=== PATIENT | male | born 1970 | race Caucasian/White ===

== ENCOUNTER 2020-07-19 15:58 | Emergency (ER) | payer BC ==
[2020-07-19] MEDS ORDERED: Sodium Chloride 0.9% 10 ML Syringe FLUSH PRN (16:24)
[2020-07-19] MEDS ORDERED: Dexamethasone 4 MG/ML SDV IVPUSH ONE (16:25)
[2020-07-19] MEDS ORDERED: Albuterol 6.7 GM Inhaler INH ONE (16:27)
[2020-07-19] MEDS ORDERED: Sodium Chloride 0.9% 1,000 ML IV ONE (16:28)
--- NOTE | 2020-07-19 16:33 | EDM.PDOC ---
ED HPI GENERAL MEDICAL PROBLEM - General Chief Complaint: Respiratory Problem Stated Complaint: COVID + SENT BY HOME CARMELO VELA 02 Time Seen by Provider: 07/19/20 16:10 Source of Information: Reports: Patient History Limitations: Reports: No Limitations - History of Present Illness INITIAL COMMENTS - FREE TEXT/NARRATIVE: The patient presents with COVID 19, cough, fever, generalized weakness and low oxygen saturations. The patient started having signs on the 8th and on the 9th he was tested. The symptoms have not gotten better. He obtained a pulse oximeter for home and his oxygen saturations have been in the upper 80s for the past 3 hours. He has no lung problems such as asthma or COPD. He does not smoke. He has no heart problems such as NM. He has no history of hypertension. He does have hypercholesterolemia. Onset: Gradual Duration: Week(s): Severity: Moderate Improves with: Reports: None Worsens with: Reports: None Associated Symptoms: Reports: Cough, Fever/Chills, Shortness of Breath. Denies: Chest Pain, Headaches, Nausea/Vomiting - Related Data Allergies Allergy/AdvReac Type Severity Reaction Status Date / Time oxycodone HCl [From Percodan] Allergy Swollen Verified 07/19/20 16:08 Tongue oxycodone terephthalate Allergy Swollen Verified 07/19/20 16:08 [From Percodan] Tongue Past Medical History Cardiovascular History: Reports: High Cholesterol - Infectious Disease History Infectious Disease History: Reports: Novel Coronavirus Social & Family History - Tobacco Use Tobacco Use Status *Q: Never Tobacco User Second Hand Smoke Exposure: No - Caffeine Use Caffeine Use: Reports: Coffee - Recreational Drug Use Recreational Drug Use: No ED ROS GENERAL - Review of Systems Review Of Systems: See Below Constitutional: Reports: Fever, Chills, Malaise, Weakness, Fatigue HEENT: Reports: No Symptoms Respiratory: Reports: Shortness of Breath, Cough Cardiovascular: Reports: No Symptoms Endocrine: Reports: No Symptoms GI/Abdominal: Reports: No Symptoms : Reports: No Symptoms Musculoskeletal: Reports: No Symptoms ED EXAM, GENERAL - Physical Exam Exam: See Below Exam Limited By: No Limitations General Appearance: Alert, No Apparent Distress Ears: Normal External Exam Nose: Normal Inspection Head: Atraumatic, Normocephalic Neck: Normal Inspection Respiratory/Chest: No Respiratory Distress, Decreased Breath Sounds. No: Rhonchi, Wheezing Cardiovascular: Regular Rate, Rhythm, No Edema, No Murmur GI/Abdominal: Soft, Non-Tender, No Organomegaly, No Mass Back Exam: Normal Inspection Extremities: Normal Inspection #1 Interpretation EKG Date: 07/19/20 Time: 16:19 Rhythm: Other (sinus tachycardia) Rate (Beats/Min): 117 [place]: Normal P-Wave: Present QRS: Normal ST-T: Normal QT: Normal Course - Vital Signs Last Recorded V/S: Last Vital Signs Temp 98.8 F 07/19/20 18:05 Pulse 111 H 07/19/20 18:05 Resp 24 H 07/19/20 18:05 BP 122/81 07/19/20 18:05 Pulse Ox 93 L 07/19/20 18:05 - Orders/Labs/Meds Orders: Active Orders 24 hr Category Date Time Status Cardiac Monitoring [RC] . DIRECTED Care 07/19/20 16:24 Active EKG Documentation Completion [RC] STAT Care 07/19/20 16:25 Active Oxygen Therapy [RC] PRN Care 07/19/20 16:24 Active Peripheral IV Care [RC] . DIRECTED Care 07/19/20 16:25 Active RT Post Treatment Assessment [RC] Click to Edit Care 07/19/20 16:27 Active RT Pre-Treatment Assessment [RC] Click to Edit Care 07/19/20 16:27 Active Chest 1V Frontal [CR] Stat Exams 07/19/20 16:25 Taken Sodium Chloride 0.9% [Saline Flush] Med 07/19/20 16:24 Active 10 ml FLUSH ASDIRECTED PRN Peripheral IV Insertion Adult [OM.PC] Stat Oth 07/19/20 16:24 Ordered Medication Orders Sodium Chloride (Saline Flush) 10 ml FLUSH ASDIRECTED PRN PRN Reason: Keep Vein Open Last Admin: 07/19/20 16:52 Dose: 10 ml Documented by: MANNY Labs: Laboratory Tests 07/19/20 07/19/20 07/19/20 Range/Units 16:55 16:55 16:55 WBC 5.79 (4.23-9.07) K/mm3 RBC 5.26 (4.63-6.08) M/mm3 Hgb 15.4 (13.7-17.5) gm/dl Hct 44.5 (40.1-51.0) % MCV 84.6 (79.0-92.2) fl MCH 29.3 (25.7-32.2) pg MCHC 34.6 (32.2-35.5) g/dl RDW Std Deviation 38.2 (35.1-43.9) fL Plt Count 209 D (163-337) K/mm3 MPV 9.9 (9.4-12.3) fl Neut % (Auto) 61.8 (34.0-67.9) % Lymph % (Auto) 21.2 L (21.8-53.1) % Jack % (Auto) 16.4 H (5.3-12.2) % Eos % (Auto) 0 L (0.8-7.0) Baso % (Auto) 0.3 (0.1-1.2) % Neut # (Auto) 3.57 (1.78-5.38) K/mm3 Lymph # (Auto) 1.23 L (1.32-3.57) K/mm3 Jack # (Auto) 0.95 H (0.30-0.82) K/mm3 Eos # (Auto) 0.00 L (0.04-0.54) K/mm3 Baso # (Auto) 0.02 (0.01-0.08) K/mm3 Manual Slide Review Abnormal smear D-Dimer, Quantitative 0.40 (0.19-0.50) mg/L Sodium 134 L D (136-145) mEq/L Potassium 3.3 L (3.5-5.1) mEq/L Chloride 100 (98-107) mEq/L Carbon Dioxide 21 (21-32) mEq/L Anion Gap 16.3 H (5-15) BUN 22 H (7-18) mg/dL Creatinine 1.2 (0.7-1.3) mg/dL Est Cr Clr Drug Dosing 79.94 mL/min Estimated GFR (MDRD) > 60 (>60) mL/min BUN/Creatinine Ratio 18.3 H (14-18) Glucose 114 H (74-106) mg/dL Lactic Acid (0.4-2.0) mmol/L Calcium 8.7 (8.5-10.1) mg/dL Ferritin (26-388) ng/ml Total Bilirubin 0.3 (0.2-1.0) mg/dL AST 34 (15-37) U/L ALT 38 (16-63) U/L Alkaline Phosphatase 56 (46-116) U/L Lactate Dehydrogenase 306 H (85-227) U/L Troponin I 0.084 H* (0.00-0.056) ng/mL C-Reactive Protein 3.3 H* (<1.0) mg/dL Total Protein 7.3 (6.4-8.2) g/dl Albumin 3.3 L (3.4-5.0) g/dl Globulin 4.0 gm/dL Albumin/Globulin Ratio 0.8 L (1-2) 07/19/20 07/19/20 07/19/20 Range/Units 16:55 19:06 19:06 WBC (4.23-9.07) K/mm3 RBC (4.63-6.08) M/mm3 Hgb (13.7-17.5) gm/dl Hct (40.1-51.0) % MCV (79.0-92.2) fl MCH (25.7-32.2) pg MCHC (32.2-35.5) g/dl RDW Std Deviation (35.1-43.9) fL Plt Count (163-337) K/mm3 MPV (9.4-12.3) fl Neut % (Auto) (34.0-67.9) % Lymph % (Auto) (21.8-53.1) % Jack % (Auto) (5.3-12.2) % Eos % (Auto) (0.8-7.0) Baso % (Auto) (0.1-1.2) % Neut # (Auto) (1.78-5.38) K/mm3 Lymph # (Auto) (1.32-3.57) K/mm3 Jack # (Auto) (0.30-0.82) K/mm3 Eos # (Auto) (0.04-0.54) K/mm3 Baso # (Auto) (0.01-0.08) K/mm3 Manual Slide Review D-Dimer, Quantitative (0.19-0.50) mg/L Sodium (136-145) mEq/L Potassium (3.5-5.1) mEq/L Chloride (98-107) mEq/L Carbon Dioxide (21-32) mEq/L Anion Gap (5-15) BUN (7-18) mg/dL Creatinine (0.7-1.3) mg/dL Est Cr Clr Drug Dosing mL/min Estimated GFR (MDRD) (>60) mL/min BUN/Creatinine Ratio (14-18) Glucose (74-106) mg/dL Lactic Acid 1.0 (0.4-2.0) mmol/L Calcium (8.5-10.1) mg/dL Ferritin 456 H (26-388) ng/ml Total Bilirubin (0.2-1.0) mg/dL AST (15-37) U/L ALT (16-63) U/L Alkaline Phosphatase (46-116) U/L Lactate Dehydrogenase (85-227) U/L Troponin I 0.082 H* (0.00-0.056) ng/mL C-Reactive Protein (<1.0) mg/dL Total Protein (6.4-8.2) g/dl Albumin (3.4-5.0) g/dl Globulin gm/dL Albumin/Globulin Ratio (1-2) Meds: Medications Generic Name Dose Route Start Last Admin Trade Name Freq PRN Reason Stop Dose Admin Sodium Chloride 10 ml 07/19/20 16:24 07/19/20 16:52 Saline Flush FLUSH 10 ml ASDIRECTED PRN Administration Keep Vein Open Discontinued Medications Generic Name Dose Route Start Last Admin Trade Name Freq PRN Reason Stop Dose Admin Albuterol 0 gm 07/19/20 16:27 07/19/20 17:36 Proventil Hfa INH 07/19/20 16:28 2 inhalation ONETIME ONE Administration Dexamethasone 6 mg 07/19/20 16:25 07/19/20 16:52 Decadron IVPUSH 07/19/20 16:26 6 mg ONETIME ONE Administration Sodium Chloride 1,000 mls @ 1,000 mls/hr 07/19/20 16:28 07/19/20 16:52 Normal Saline IV 07/19/20 17:27 1,000 mls/hr ONETIME ONE Administration - Re-Assessments/Exams Free Text/Narrative Re-Assessment/Exam: 07/19/20 16:36 I ordered oxygen PRN, IV saline lock, EKG, CXR, dexamethasone 6mg IV, albuterol 2 puffs and labs. 07/19/20 18:00 His CBC looks good. His D-dimer and lactic acid are normal. His CXR shows right lower lung scarring versus subsegmental atelectasis. 07/19/20 18:55 His Na is a little low at 134. His potassium is low at 3.3. His troponin is elevated at 0.084. His CRP is elevated at 3.3. I do not feel he had an NM but the COVID is putting a strain on his heart. I called the [facility] intervention[facility] and talked with Dr aYo and he wanted me to do a repeat troponin and an echo. I have ordered the repeat troponin. 07/19/20 20:12 The repeat troponin is better at 0.082. I have scheduled an echo cardiogram for tomorrow at 9 am and repeat troponin. 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 Take tylenol or motrin as needed for any fever. Come tomorrow morning at 9am for an echocardiogram of your heart and some labs. Please come early to register. Please return if you are worse. Sepsis Event Note (ED) - Evaluation Sepsis Screening Result: No Definite Risk - Focused Exam Vital Signs: Vital Signs Temp Pulse Resp BP Pulse Ox Pulse Ox 07/19/20 18:05 98.8 F 111 H 24 H 122/81 93 L 93 L 07/19/20 16:05 98.9 F 120 H 20 136/88 93 L - My Orders Last 24 Hours: My Active Orders 07/19/20 16:24 Cardiac Monitoring [RC] . DIRECTED Oxygen Therapy [RC] PRN Sodium Chloride 0.9% [Saline Flush] 10 ml FLUSH ASDIRECTED PRN Peripheral IV Insertion Adult [OM.PC] Stat 07/19/20 16:25 EKG Documentation Completion [RC] STAT Peripheral IV Care [RC] . DIRECTED Chest 1V Frontal [CR] Stat 07/19/20 16:27 RT Post Treatment Assessment [RC] Click to Edit RT Pre-Treatment Assessment [RC] Click to Edit - Assessment/Plan Last 24 Hours: My Active Orders 07/19/20 16:24 Cardiac Monitoring [RC] . DIRECTED Oxygen Therapy [RC] PRN Sodium Chloride 0.9% [Saline Flush] 10 ml FLUSH ASDIRECTED PRN Peripheral IV Insertion Adult [OM.PC] Stat 07/19/20 16:25 EKG Documentation Completion [RC] STAT Peripheral IV Care [RC] . DIRECTED Chest 1V Frontal [CR] Stat 07/19/20 16:27 RT Post Treatment Assessment [RC] Click to Edit RT Pre-Treatment Assessment [RC] Click to Edit
--- NOTE | 2020-07-20 08:42 | CR ---
PROCEDURE INFORMATION: Exam: XR Chest, 1 View Exam date and time: 07/19/2020 4:48 PM Age: 49 years old Clinical indication: Chest pain; Patient HX: Cough, SOB TECHNIQUE: Imaging protocol: XR of the chest Views: 1 view. COMPARISON: No relevant prior studies available. FINDINGS: Lungs: There is small linear right basilar opacity. No focal consolidation. Pleural space: Unremarkable. No pleural effusion. No pneumothorax. Heart/Mediastinum: Unremarkable. No cardiomegaly. Bones/joints: Unremarkable. IMPRESSION: Right lower lung scarring versus subsegmental atelectasis. Thank you for allowing us to participate in the care of your patient. Dictated and Authenticated by: Kenny Florence MD 07/19/2020 6:25 PM Central Time ([place] & [place]) [email or web address]
== END 2020-07-19 20:36 | disposition home or self-care (01) ==
LOC: JD.ED 15:58
DX: U07.1 COVID-19 (principal); I42.9 Cardiomyopathy, unspecified; Z88.5 Allergy status to narcotic agent
CPT/HCPCS: 36415; 71045; 80053; 82728; 83605; 83615; 84484; 85025; 85379; 86140; 93005; 94640; 94762; 96374; 99284; A9270; J1100; J7030; 93010

== ENCOUNTER 2020-08-01 15:22 | Emergency (ER) | payer BC ==
--- NOTE | 2020-08-01 17:31 | EDM.PDOC ---
ED HPI GENERAL MEDICAL PROBLEM - General Chief Complaint: Respiratory Problem Stated Complaint: ELEVATED D DIMER,TACHY,DYSPNEA Time Seen by Provider: 08/01/20 17:31 - History of Present Illness INITIAL COMMENTS - FREE TEXT/NARRATIVE: 49-year-old male presents the emergency room after being sent here by the clinic with tachypnea tachycardia and an elevated D-dimer. Patient has had trouble breathing since this last Friday. Is progressively gotten worse his pulse rate is high in the 140s sometimes higher at rest. His respiratory rate is in the low to mid 20s and he just feels short of breath with any sort of activity and at rest it is worsened with activity. Patient has a significant recent past medical history been diagnosed with Covid on 11 July he got over this without too much difficulty had a week of feeling good however this most recent Friday he developed worsening shortness of breath again and his symptoms have gradually worsened to this point. He was seen in the clinic where his D-dimer was elevated they appropriately ordered a CTA however prior to waiting for the results of this he was sent to the emergency room because it was felt that he was not in a condition can go home. The patient is alert is oriented and is very cooperative. Back Pain Score (Numeric/FACES): 2 - Related Data Allergies Allergy/AdvReac Type Severity Reaction Status Date / Time oxycodone HCl [From Percodan] Allergy Swollen Verified 08/01/20 16:17 Tongue oxycodone terephthalate Allergy Swollen Verified 08/01/20 16:17 [From Percodan] Tongue Home Meds: Home Meds Albuterol [Proventil HFA] 2 puff INH ASDIRECTED 08/01/20 [History] Amitriptyline [Elavil] 10 mg PO BEDTIME 08/01/20 [History] Folic Acid 1 mg PO DAILY 08/01/20 [History] Rosuvastatin [Crestor] 10 mg PO DAILY 08/01/20 [History] sulfaSALAzine 500 mg PO QID 08/01/20 [History] Past Medical History Cardiovascular History: Reports: High Cholesterol Respiratory History: Reports: PE - Infectious Disease History Infectious Disease History: Reports: Novel Coronavirus Social & Family History - Tobacco Use Tobacco Use Status *Q: Never Tobacco User - Caffeine Use Caffeine Use: Reports: Coffee - Recreational Drug Use Recreational Drug Use: No ED ROS GENERAL - Review of Systems Review Of Systems: See Below Constitutional: Reports: Weakness, Fatigue. Denies: No Symptoms, Fever, Chills, Night Sweats, Diaphoresis HEENT: Reports: No Symptoms Respiratory: Reports: Shortness of Breath, Pleuritic Chest Pain. Denies: Wheezing, Cough, Sputum, Hemoptysis Cardiovascular: Reports: Chest Pain GI/Abdominal: Reports: No Symptoms : Reports: No Symptoms Musculoskeletal: Reports: No Symptoms Skin: Reports: No Symptoms Neurological: Reports: No Symptoms Psychiatric: Reports: No Symptoms Hematologic/Lymphatic: Reports: No Symptoms Immunologic: Reports: No Symptoms ED EXAM, GENERAL - Physical Exam Exam: See Below Exam Limited By: No Limitations General Appearance: Alert, Mild Distress (Working a little bit to breathe) Head: Atraumatic, Normocephalic Respiratory/Chest: Decreased Breath Sounds (Of lung bases), Other (No friction rub). No: Crackles, Rales Cardiovascular: Regular Rate, Rhythm, No Edema, No Murmur, No Rub GI/Abdominal: Normal Bowel Sounds, Soft, Non-Tender Extremities: Normal Inspection, Non-Tender, No Pedal Edema Neurological: Alert, Oriented, Normal Cognition Psychiatric: Normal Affect, Normal Mood Skin Exam: Warm, Dry, Intact Lymphatic: No Adenopathy Course - Vital Signs Last Recorded V/S: Last Vital Signs Temp 38.4 C H 08/01/20 16:12 Pulse 142 H 08/01/20 17:46 Resp 25 H 08/01/20 16:12 BP 127/82 08/01/20 17:46 Pulse Ox 94 L 08/01/20 17:46 - Orders/Labs/Meds Orders: Active Orders 24 hr Category Date Time Status TROPONIN I [CHEM] Stat Lab 08/01/20 18:49 Ordered Heparin Sodium/D5W [Heparin 25,000 Units in D5W 500 ML] Med 08/01/20 18:30 Active 25,000 units in 500 ml IV TITRATE Medication Orders Heparin Sodium/Dextrose (Heparin 25,000 Units In D5w 500 Ml) 25,000 units in 500 mls @ 26 mls/hr IV TITRATE BUBBA; Protocol Labs: Laboratory Tests 08/01/20 Range/Units 18:01 PT 13.1 H (9.7-12.0) SECONDS INR 1.23 APTT 31.3 (21.7-31.4) SECONDS Meds: Medications Generic Name Dose Route Start Last Admin Trade Name Willis PRN Reason Stop Dose Admin Heparin Sodium/Dextrose 25,000 units in 500 mls @ 26 mls/hr 08/01/20 18:30 Heparin 25,000 Units In D5w 500 Ml IV TITRATE BUBBA Protocol 1,300 UNITS/HR Discontinued Medications Generic Name Dose Route Start Last Admin Trade Name Willis PRN Reason Stop Dose Admin Apixaban 10 mg 08/01/20 17:45 Eliquis PO 08/01/20 17:46 ONETIME ONE Heparin Sodium (Porcine) 5,000 units 08/01/20 18:26 Heparin Sodium IVPUSH 08/01/20 18:27 .BOLUS ONE Departure - Departure Time of Disposition: 18:15 Disposition: DC/Tfer to Acute Hospital 02 Clinical Impression: Pulmonary embolism, bilateral - Discharge Information Referrals: Zelda Marin, SHIPPING MANAGER [Primary Care Provider] - Forms: ED Department Discharge Sepsis Event Note (ED) - Evaluation Sepsis Screening Result: Possible Sepsis Risk - Focused Exam Vital Signs: Vital Signs Temp Pulse Resp BP Pulse Ox 08/01/20 17:46 142 H 127/82 94 L 08/01/20 16:12 38.4 C H 139 H 25 H 112/79 93 L - My Orders Last 24 Hours: My Active Orders 08/01/20 18:30 Heparin Sodium/D5W [Heparin 25,000 Units in D5W 500 ML] 25,000 units in 500 ml IV TITRATE 08/01/20 18:49 TROPONIN I [CHEM] Stat - Assessment/Plan Last 24 Hours: My Active Orders 08/01/20 18:30 Heparin Sodium/D5W [Heparin 25,000 Units in D5W 500 ML] 25,000 units in 500 ml IV TITRATE 08/01/20 18:49 TROPONIN I [CHEM] Stat
[2020-08-01] MEDS ORDERED: Apixaban 5 MG Tab PO ONE (17:45)
[2020-08-01] MEDS ORDERED: Heparin Sodium 5,000 Units/ML Vial IVPUSH ONE (18:26)
[2020-08-01] MEDS ORDERED: Heparin Sodium/D5W 25,000 UNITS/500 ML BAG IV SCH (18:30)
== END 2020-08-01 20:30 ==
LOC: JD.ED 15:22
DX: I26.99 Other pulmonary embolism without acute cor pulmonale (principal); E78.00 Pure hypercholesterolemia, unspecified; Z86.19 Personal history of other infectious and parasitic diseases; Z79.899 Other long term (current) drug therapy; Z88.5 Allergy status to narcotic agent
CPT/HCPCS: 36415; 84484; 85610; 85730; 93005; 96365; 96366; 99285; J1644; 93010

== ENCOUNTER 2021-04-24 20:34 | Emergency (ER) | payer BC ==
--- NOTE | 2021-04-24 21:31 | EDM.PDOC ---
ED HPI GENERAL MEDICAL PROBLEM - General Chief Complaint: Flank Pain Stated Complaint: FLANK PAIN Time Seen by Provider: 04/24/21 21:31 - History of Present Illness INITIAL COMMENTS - FREE TEXT/NARRATIVE: 50-year-old male presents the emergency room with right-sided flank pain. This started earlier today. He has significant flank pain that extends all the way down his abdomen into his right inner thigh and groin. He has not had any associated fevers with this he has had some chills with the pain when it has been really severe. He has had some intermittent nausea. Patient has a history of a kidney stone his last one was approximately 14 years ago. He has not had any burning or frequency with urination. He cannot recall any precipitating events. Right Flank Pain Score (Numeric/FACES): 9 - Related Data Allergies Allergy/AdvReac Type Severity Reaction Status Date / Time oxycodone HCl [From Percodan] Allergy Swollen Verified 04/24/21 20:38 Tongue oxycodone terephthalate Allergy Swollen Verified 04/24/21 20:38 [From Percodan] Tongue Home Meds: Home Meds Amitriptyline [Elavil] 25 mg PO BEDTIME 08/01/20 [History] Folic Acid 1 mg PO DAILY 08/01/20 [History] Rosuvastatin [Crestor] 20 mg PO DAILY 08/01/20 [History] sulfaSALAzine 500 mg PO QID 08/01/20 [History] Potassium Chloride [Klor-Con M20] 20 meq PO BID #2 tab.er.prt 04/25/21 [Rx] Past Medical History HEENT History: Reports: None Cardiovascular History: Reports: High Cholesterol Respiratory History: Reports: PE Gastrointestinal History: Reports: Other (See Below) Other Gastrointestinal History: UC Genitourinary History: Reports: Renal Calculus Musculoskeletal History: Reports: None Neurological History: Reports: None Psychiatric History: Reports: None Endocrine/Metabolic History: Reports: None Oncologic (Cancer) History: Reports: None Dermatologic History: Reports: None - Infectious Disease History Infectious Disease History: Reports: Chicken Pox, Novel Coronavirus - Past Surgical History Head Surgeries/Procedures: Reports: None HEENT Surgical History: Reports: Adenoidectomy, LASIK, Oral Surgery, Tonsil lectomy Social & Family History - Family History Family Medical History: No Pertinent Family History - Tobacco Use Tobacco Use Status *Q: Never Tobacco User - Caffeine Use Caffeine Use: Reports: Coffee, Soda - Recreational Drug Use Recreational Drug Use: No ED ROS GENERAL - Review of Systems Review Of Systems: See Below Constitutional: Reports: No Symptoms HEENT: Reports: No Symptoms Respiratory: Reports: No Symptoms Cardiovascular: Reports: No Symptoms GI/Abdominal: Reports: Abdominal Pain : Reports: Flank Pain. Denies: Discharge, Dysuria Musculoskeletal: Reports: No Symptoms ED EXAM, GENERAL - Physical Exam Exam: See Below Exam Limited By: No Limitations General Appearance: Alert, No Apparent Distress Head: Atraumatic, Normocephalic Neck: Normal Inspection, Supple, Non-Tender, Full Range of Motion Respiratory/Chest: No Respiratory Distress, Lungs Clear, Normal Breath Sounds Cardiovascular: Regular Rate, Rhythm, No Edema, No Murmur GI/Abdominal: Normal Bowel Sounds, Soft, Other (He has significant right-sided abdominal discomfort especially in the lower portion this is minimally aggravated with palpation no rigidity or rebound noted) Back Exam: Normal Inspection. No: CVA Tenderness (L), CVA Tenderness (R) Extremities: Normal Inspection, No Pedal Edema Neurological: Alert, Oriented, Normal Cognition Skin Exam: Warm, Dry, Intact Course - Vital Signs Last Recorded V/S: Last Vital Signs Temp 36.2 C 04/24/21 20:41 Pulse 84 04/24/21 20:41 Resp 22 H 04/24/21 20:41 BP 160/109 H 04/24/21 20:41 Pulse Ox 100 04/24/21 20:41 - Orders/Labs/Meds Orders: Active Orders 24 hr Category Date Time Status Abdomen Pelvis wo Cont [CT] Stat Exams 04/24/21 21:40 Taken Lactated Ringers [Ringers, Lactated] 1,000 ml Med 04/24/21 22:00 Active IV ASDIRECTED Medication Orders Lactated Ringer's (Ringers, Lactated) 1,000 mls @ 150 mls/hr IV ASDIRECTED BUBBA Last Admin: 04/24/21 21:57 Dose: 150 mls/hr Documented by: VALERIE Labs: Laboratory Tests 04/24/21 04/24/21 04/24/21 Range/Units 20:50 20:50 21:14 WBC 12.14 H (4.23-9.07) K/mm3 RBC 5.29 (4.63-6.08) M/mm3 Hgb 15.8 (13.7-17.5) gm/dl Hct 46.7 (40.1-51.0) % MCV 88.3 (79.0-92.2) fl MCH 29.9 (25.7-32.2) pg MCHC 33.8 (32.2-35.5) g/dl RDW Std Deviation 41.5 (35.1-43.9) fL Plt Count 309 D (163-337) K/mm3 MPV 10.0 (9.4-12.3) fl Neut % (Auto) 73.3 H (34.0-67.9) % Lymph % (Auto) 14.1 L (21.8-53.1) % [place] % (Auto) 11.1 (5.3-12.2) % Eos % (Auto) 1.1 (0.8-7.0) Baso % (Auto) 0.2 (0.1-1.2) % Neut # (Auto) 8.89 H (1.78-5.38) K/mm3 Lymph # (Auto) 1.71 (1.32-3.57) K/mm3 [place] # (Auto) 1.35 H (0.30-0.82) K/mm3 Eos # (Auto) 0.13 (0.04-0.54) K/mm3 Baso # (Auto) 0.03 (0.01-0.08) K/mm3 Manual Slide Review Normal smear Sodium 135 L (136-145) mEq/L Potassium 3.1 L (3.5-5.1) mEq/L Chloride 97 L (98-107) mEq/L Carbon Dioxide 26 (21-32) mEq/L Anion Gap 15.1 H (5-15) BUN 20 H (7-18) mg/dL Creatinine 1.6 H (0.7-1.3) mg/dL Est Cr Clr Drug Dosing 59.28 mL/min Estimated GFR (MDRD) 46 (>60) mL/min BUN/Creatinine Ratio 12.5 L (14-18) Glucose 179 H (70-99) mg/dL Calcium 9.4 (8.5-10.1) mg/dL Total Bilirubin 0.7 (0.2-1.0) mg/dL AST 31 (15-37) U/L ALT 43 (16-63) U/L Alkaline Phosphatase 88 (46-116) U/L Total Protein 8.6 H (6.4-8.2) g/dl Albumin 4.3 (3.4-5.0) g/dl Globulin 4.3 gm/dL Albumin/Globulin Ratio 1.0 (1-2) Urine Color Dark yellow (Yellow) Urine Appearance Clear (Clear) Urine pH 6.0 (5.0-8.0) Ur Specific [place] > or = 1.030 (1.005-1.030) Urine Protein 1+ H (Negative) Urine Glucose (UA) Negative (Negative) Urine Ketones Negative (Negative) Urine Occult Blood 1+ H (Negative) Urine Nitrite Negative (Negative) Urine Bilirubin Negative (Negative) Urine Urobilinogen 0.2 (0.2-1.0) Ur Leukocyte Esterase Negative (Negative) Urine RBC 5-10 H (0-5) /hpf Urine WBC 0-5 (0-5) /hpf Ur Squamous Epith Cells 0-5 (0-5) /hpf Urine Bacteria Few (FEW) /hpf Urine Mucus Few (FEW) /hpf Meds: Medications Generic Name Dose Route Start Last Admin Trade Name Freq PRN Reason Stop Dose Admin Lactated Ringer's 1,000 mls @ 150 mls/hr 04/24/21 22:00 04/24/21 21:57 Ringers, Lactated IV 150 mls/hr ASDIRECTED BUBBA Administration Discontinued Medications Generic Name Dose Route Start Last Admin Trade Name Freq PRN Reason Stop Dose Admin Hydrocodone Bitart/Acetaminophen 1 tab 04/24/21 22:50 04/24/21 23:09 Acetaminophen/Hydrocodone 325-5 Mg Tab PO 04/24/21 22:51 1 tab ONETIME ONE Administration Hydrocodone Bitart/Acetaminophen 1 tab 04/24/21 23:52 Acetaminophen/Hydrocodone 325-5 Mg Tab PO 04/24/21 23:53 ONETIME ONE Fentanyl 50 mcg 04/24/21 21:40 04/24/21 21:47 Fentanyl 100 Mcg/2 Ml Sdv IVPUSH 04/24/21 21:41 50 mcg ONETIME ONE Administration Fentanyl 50 mcg 04/24/21 21:42 04/24/21 21:53 Fentanyl 100 Mcg/2 Ml Sdv IVPUSH 04/24/21 21:43 50 mcg ONETIME ONE Administration Fentanyl 100 mcg 04/24/21 22:42 04/24/21 23:10 Fentanyl 100 Mcg/2 Ml Sdv IVPUSH 04/24/21 22:43 100 mcg ONETIME ONE Administration Ondansetron HCl 4 mg 04/24/21 21:40 04/24/21 21:46 Ondansetron 4 Mg/2 Ml Sdv IVPUSH 04/24/21 21:41 4 mg ONETIME ONE Administration Potassium Chloride 40 meq 04/24/21 22:46 04/24/21 23:10 Potassium Chloride 20 Meq Tab.Er PO 04/24/21 22:47 40 meq ONETIME ONE Administration - Re-Assessments/Exams Free Text/Narrative Re-Assessment/Exam: 04/24/21 21:49 Labs ordered we will check a CT KUB. We will start him on some fentanyl for discomfort and some Zofran. 04/24/21 22:52 Is received 100 mcg of fentanyl this is wearing off we will give him another 100 mics of fentanyl and give him hydrocodone make sure he tolerates this he has had a questionable reaction Percocet or Percodan in the past. CT shows a right- sided 1 x 2 mm kidney stone right at the distal ureter. With significant hydronephrosis in the kidneys he has multiple nonobstructing stones in both kidneys no other acute changes noted on CT. I will give the patient 40 mEq of oral potassium as his potassium is 3.1 I will not use Toradol his creatinine is 1.6. 04/24/21 23:56 We will give the patient a second oral pain medication he does not think he can sleep the way is right now but will get him going with [place] 1 or 2 every 4-6 hours as needed. Patient is in agreement to this Departure - Departure Time of Disposition: 23:57 Disposition: Home, Self-Care 01 Clinical Impression: Renal colic on right side, Kidney stone on right side - Discharge Information Referrals: Zelda Marin, [employer] [Primary Care Provider] - Forms: ED Department Discharge Additional Instructions: Return to the emergency room with any questions problems or worsening symptoms. Use the pain medication 1 or 2 every 4-6 hours as needed for pain. Do not drive or return to work within 12 hours of using this medication. Follow-up in the clinic on have your potassium rechecked and have your creatinine rechecked as well as general follow-up on how you are doing. In addition to the pain pills I given you some oral potassium take 1 twice daily tomorrow. Sepsis Event Note (ED) - Focused Exam Vital Signs: Vital Signs Temp Pulse Resp BP Pulse Ox 04/24/21 20:41 36.2 C 84 22 H 160/109 H 100 - My Orders Last 24 Hours: My Active Orders 04/24/21 21:40 Abdomen Pelvis wo Cont [CT] Stat 04/24/21 22:00 Lactated Ringers [Ringers, Lactated] 1,000 ml IV ASDIRECTED - Assessment/Plan Last 24 Hours: My Active Orders 04/24/21 21:40 Abdomen Pelvis wo Cont [CT] Stat 04/24/21 22:00 Lactated Ringers [Ringers, Lactated] 1,000 ml IV ASDIRECTED
[2021-04-24] MEDS ORDERED: Ondansetron 4 MG/2 ML SDV IVPUSH ONE (21:40)
[2021-04-24] MEDS ORDERED: fentaNYL 100 MCG/2 ML SDV IVPUSH ONE ×3 (21:40→22:42)
[2021-04-24] MEDS ORDERED: Lactated Ringers 1,000 ML IV SCH (22:00)
[2021-04-24] MEDS ORDERED: Potassium Chloride 20 MEQ Tab.ER PO ONE (22:46)
[2021-04-24] MEDS ORDERED: Acetaminophen/HYDROcodone 325-5 MG Tab PO ONE ×2 (22:50→23:52)
--- NOTE | 2021-04-25 08:07 | CT ---
CT abdomen and pelvis Technique: Multiple axial sections were obtained from above the dome of the diaphragm inferiorly through the pubic symphysis. Intravenous and oral contrast were not utilized. Study has been performed as a ureteral stone protocol. Reconstructed coronal and sagittal images were also obtained. Comparison: No prior CT abdomen or pelvis study is available, prior abdominal ultrasound of 03/28/11. Findings: There is inflammatory change seen around the right kidney. Dilated right renal collecting system and right ureter is noted. These findings are caused by 3.5 mm obstructing stone which is located within the distal right ureter at the UVJ. Multiple small nonobstructing calculi are seen within both kidneys. Visualized lung bases show minimal atelectasis. Noncontrast appearance of the liver and spleen appear within normal limits. Gallbladder contains no calcified gallstones. Adrenal glands show no nodule. Pancreas shows no discrete abnormality. Abdominal aorta shows mild atherosclerotic calcification without aneurysm. No retroperitoneal adenopathy is seen. Appendix is seen which appears within normal limits. No pelvic mass or adenopathy is seen. Bone window settings were reviewed which appear within normal limits for the patient's age. Impression: 1. Multiple small nonobstructing calculi within both kidneys. 2. Inflammatory change and dilated collecting system within the right kidney which is caused by a 3.5 mm stone within the distal right ureter located at the UVJ. 3. Other findings believed to be incidental as noted above. Diagnostic code #3 I agree with preliminary report from [facility], finalized on 04/24/21, 11:40 PM CDT, code 1
== END 2021-04-25 00:20 | disposition home or self-care (01) ==
LOC: JD.ED 20:34
DX: N13.2 Hydronephrosis with renal and ureteral calculous obstruction (principal); E78.00 Pure hypercholesterolemia, unspecified; Z88.5 Allergy status to narcotic agent; Z79.899 Other long term (current) drug therapy; Z86.16 Personal history of COVID-19
CPT/HCPCS: 36415; 74176; 80053; 81001; 85025; 96374; 96375; 96376; 99284; A9270; J2405; J3010; J7120

== ENCOUNTER 2024-09-30 07:33 | Day surgery (SDC) | payer BC ==
[~2024-09-30 07:33] MED LIST: HYDROmorphone 0.5 MG/0.5 ML Syringe IVPUSH PRN; Ondansetron 4 MG/2 ML SDV IVPUSH PRN; Sodium Chloride 0.9% 10 ML Syringe FLUSH PRN; Sodium Chloride 0.9% 10 ML Syringe FLUSH SCH; fentaNYL 100 MCG/2 ML SDV IVPUSH PRN
[2024-09-30] MEDS: Lactated Ringers 1,000 ML IV SCH (07:45)
[2024-09-30] MEDS ORDERED: Propofol 200 MG/20 ML SDV ONE (08:02)
[2024-09-30] MEDS ORDERED: Lidocaine 2% 5 ML SDV ONE (08:03)
== END 2024-09-30 09:40 | disposition home or self-care (01) ==
LOC: JD.SDS 07:33
PROVIDERS: ATTEND Surgery
DX: K21.9 Gastro-esophageal reflux disease without esophagitis (principal); R13.10 Dysphagia, unspecified; R09.A2 Foreign body sensation, throat; I10 Essential (primary) hypertension; E78.00 Pure hypercholesterolemia, unspecified; Z87.891 Personal history of nicotine dependence; Z79.899 Other long term (current) drug therapy; Z88.8 Allergy status to other drugs, medicaments and biological substances
CPT/HCPCS: 43239; J2704; J7120; 00731; J3490